=== PATIENT | female | born 1955 | race Caucasian/White ===

== ENCOUNTER 2016-07-10 15:08 | Outpatient (RCR) | payer BC ==
[2016-03-09 08:39] VITALS: BP 113/56
[~2016-07-10 15:08] MED LIST: ADVAIR IH; ALBUTEROL2.5 MG/3 M INH; BREO ELLIPTA1 POW IH; PAROXETINE40 MG PO; PREDNISONE20 M1 PO; PROAIR RESPICL90 MCG INH; ZITHROMAX 250M250 MG PO
== END 2016-08-12 10:26 | disposition home or self-care (01) ==
LOC: PT 15:08 → EDSTATUS 16:19 → PT 08-12 10:26
DX: M25.512 Pain in left shoulder (principal)

== ENCOUNTER → 2016-10-16 | Outpatient (CLI) | payer BC ==
[2016-03-09 08:39] VITALS: BP 113/56
== END ==
LOC: RAD 17:26
DX: R05 Cough (principal)

== ENCOUNTER → 2018-06-08 | Outpatient (CLI) | payer BC ==
[2016-03-09 08:39] VITALS: BP 113/56
== END ==
LOC: RAD 12:21
DX: R93.5 Abnormal findings on diagnostic imaging of other abdominal regions, including retroperitoneum (principal); K59.01 Slow transit constipation; R10.12 Left upper quadrant pain; N30.01 Acute cystitis with hematuria

== ENCOUNTER → 2018-06-15 | Outpatient (CLI) | payer BC ==
[2016-03-09 08:39] VITALS: BP 113/56
== END ==
LOC: RAD 10:44
DX: R10.9 Unspecified abdominal pain (principal)

== ENCOUNTER → 2018-07-15 | Outpatient (CLI) | payer BC ==
[2016-03-09 08:39] VITALS: BP 113/56
== END ==
LOC: RAD 16:00
DX: N20.0 Calculus of kidney (principal); R93.5 Abnormal findings on diagnostic imaging of other abdominal regions, including retroperitoneum

== ENCOUNTER → 2020-12-05 | Outpatient (CLI) | payer MEDICARE ==
[~2020-12-05] MED LIST changes: +ONDANSETRON ODT8 MG PO; +VALIUM 2MG T2 MG/TAB PO; +WELLBUTRIN SR150 M2 PO
[2020-12-05 09:50] LABS: HEMATOCRIT 48.8 % (37.0-47.0); HEMOGLOBIN 15.6 g/dL (12.5-16.0); MEAN PLATELET VOLUME 11.2 fl (7.4-10.4); RED BLOOD COUNT 5.29 M/mm3 (4.10-5.30); RED CELL DISTRIBUTION WIDTH 13.8 % (11.5-14.5); WHITE BLOOD COUNT 6.9 K/mm3 (4.8-10.8)
[2020-12-05 09:57] LABS: ALBUMIN 3.9 g/dL (3.4-4.8); POTASSIUM 4.1 mmol/L (3.5-5.1)
[2020-12-05 09:58] LABS: CALCIUM 8.6 mg/dL (8.3-10.5)
[2020-12-05 10:00] LABS: TOTAL PROTEIN 6.7 g/dL (6.2-8.1)
[2020-12-05 10:02] LABS: TOTAL BILIRUBIN 0.5 mg/dL (0.2-1.2)
== END ==
LOC: LAB 12-04 14:20
PROVIDERS: Family Medicine
DX: I10 Essential (primary) hypertension (principal); E55.9 Vitamin D deficiency, unspecified; Z72.0 Tobacco use

== ENCOUNTER → 2020-12-17 | Outpatient (CLI) | payer MEDICARE | LOC: MAMMO 14:22 | DX: Z13.820 Encounter for screening for osteoporosis (principal); Z12.31 Encounter for screening mammogram for malignant neoplasm of breast ==

== ENCOUNTER 2020-12-19 20:09 | Emergency (ER) | payer MEDICARE ==
[~2020-12-19 20:09] MED LIST changes: -ONDANSETRON ODT8 MG PO; -VALIUM 2MG T2 MG/TAB PO; -WELLBUTRIN SR150 M2 PO
[2020-12-19 22:27] LABS: BASO # 0.05 (0.02-0.10); EOS # 0.07 (0.04-0.40); EOS % 0.7 % (1.0-5.0); HEMATOCRIT 49.6 % (37.0-47.0); HEMOGLOBIN 15.8 g/dL (12.5-16.0); LYMPH# 1.31 (1.50-4.00); MEAN CELL VOLUME 93 fl (78-100); MEAN CORPUSCULAR HEMOGLOBIN 30 pg (27-31); MEAN CORPUSCULAR HGB CONC 32 g/dL (33-37); MEAN PLATELET VOLUME 11.7 fl (7.4-10.4); MONO # 0.55 (0.20-0.80); NEU # 8.57 (1.40-6.50); PLATELET COUNT 214 K/mm3 (130-400); RED BLOOD COUNT 5.36 M/mm3 (4.10-5.30); RED CELL DISTRIBUTION WIDTH 13.6 % (11.5-14.5); WHITE BLOOD COUNT 10.6 K/mm3 (4.8-10.8)
[2020-12-19 22:36] LABS: ALBUMIN 3.9 g/dL (3.4-4.8); POTASSIUM 4.3 mmol/L (3.5-5.1); SODIUM 141 mmol/L (136-145)
[2020-12-19 22:38] LABS: CALCIUM 8.9 mg/dL (8.3-10.5)
[2020-12-19 22:39] LABS: GLUCOSE 111 mg/dL (65-105); TOTAL PROTEIN 6.9 g/dL (6.2-8.1)
[2020-12-19 22:40] LABS: CARBON DIOXIDE 27 mmol/L (23-31)
[2020-12-19 22:41] LABS: TOTAL BILIRUBIN 0.4 mg/dL (0.2-1.2)
[2020-12-19 22:44] LABS: AST-SGOT 16 U/L (5-34)
[2020-12-19 22:45] LABS: ALT/SGPT 28 U/L (0-55)
[2020-12-19 22:49] LABS: URINE APPEARANCE CLOUDY; URINE COLOR YELLOW; URINE GLUCOSE NEGATIVE (NEGATIVE); URINE KETONE NEGATIVE (NEGATIVE); URINE PROTEIN(semi-quant) TRACE mg/dL (NEGATIVE)
[2020-12-19 22:50] LABS: URINE BILIRUBIN NEGATIVE (NEGATIVE); URINE BLOOD TRACE (NEGATIVE); URINE LEUKOCYTE ESTERASE NEGATIVE (NEGATIVE); URINE MUCUS PRESENT (NOT PRESENT); URINE NITRATE NEGATIVE (NEGATIVE); URINE UROBILINOGEN NORMAL (NORMAL)
[2020-12-19 22:52] LABS: TROPONIN-I < 0.03 ng/mL (<0.030)
[2020-12-19] MEDS ORDERED: WELLBUTRIN SR150 M2 PO (23:05)
[2020-12-20] MEDS ORDERED: ONDANSETRON ODT8 MG PO (01:21)
[2020-12-20] MEDS ORDERED: VALIUM 2MG T2 MG/TAB PO (01:21)
[2020-12-20 01:38] VITALS: BP 125/63
== END 2020-12-20 01:38 | disposition home or self-care (01) ==
LOC: ED 20:09
PROVIDERS: Nurse Practitioner Family
DX: J44.9 Chronic obstructive pulmonary disease, unspecified (principal); R11.2 Nausea with vomiting, unspecified; J30.2 Other seasonal allergic rhinitis; R42 Dizziness and giddiness; F41.9 Anxiety disorder, unspecified; F32.9 Major depressive disorder, single episode, unspecified; E11.9 Type 2 diabetes mellitus without complications; I10 Essential (primary) hypertension; F17.210 Nicotine dependence, cigarettes, uncomplicated; Z79.899 Other long term (current) drug therapy
CPT/HCPCS: J2405; J3360; J7030

== ENCOUNTER 2022-08-01 15:32 | Emergency (ER) | payer MEDICARE ==
[~2022-08-01] VITALS: Ht 157.5 cm; Wt 98.6 kg
[~2022-08-01 15:32] MED LIST changes: +ONDANSETRON ODT8 MG PO; +VALIUM 2MG T2 MG/TAB PO; +WELLBUTRIN SR150 M2 PO
[2022-08-01] MEDS ORDERED: AMLODIPINE BES2.5 MG PO (15:52)
[2022-08-01] MEDS ORDERED: INCRUSE EL62.5 MCG/A IH (15:52)
[2022-08-01] MEDS ORDERED: PAROXETINE HYDR40 MG PO (15:53)
[2022-08-01 16:47] LABS: HEMATOCRIT 42.6 % (37.0-47.0); HEMOGLOBIN 13.7 g/dL (12.5-16.0); MEAN CELL VOLUME 92 fl (78-100); MEAN CORPUSCULAR HEMOGLOBIN 30 pg (27-31); MEAN CORPUSCULAR HGB CONC 32 g/dL (33-37); MEAN PLATELET VOLUME 11.8 fl (7.4-10.4); PLATELET COUNT 139 K/mm3 (130-400); RED BLOOD COUNT 4.62 M/mm3 (4.10-5.30); RED CELL DISTRIBUTION WIDTH 13.5 % (11.5-14.5); WHITE BLOOD COUNT 4.8 K/mm3 (4.8-10.8)
[2022-08-01 17:00] LABS: POTASSIUM 3.9 mmol/L (3.5-5.1)
[2022-08-01 17:01] LABS: CALCIUM 8.7 mg/dL (8.3-10.5)
[2022-08-01 17:02] LABS: TOTAL PROTEIN 6.3 g/dL (6.2-8.1)
[2022-08-01 17:04] LABS: TOTAL BILIRUBIN 0.6 mg/dL (0.2-1.2)
[2022-08-01 17:06] LABS: BAND 3 % (0-10); LYMPHOCYTE 7 % (20-51); MONOCYTE 8 % (3-10); NEUTROPHILS 82 % (42-75)
[2022-08-01 17:22] LABS: URINE APPEARANCE HAZY; URINE BILIRUBIN NEGATIVE (NEGATIVE); URINE BLOOD 250 ery/uL (NEGATIVE); URINE COLOR YELLOW; URINE GLUCOSE NEGATIVE (NEGATIVE); URINE KETONE 2+ (NEGATIVE); URINE LEUKOCYTE ESTERASE NEGATIVE (NEGATIVE); URINE NITRATE NEGATIVE (NEGATIVE); URINE PROTEIN(semi-quant) TRACE (NEGATIVE); URINE UROBILINOGEN NORMAL (NORMAL)
[2022-08-01] MEDS ORDERED: LORAZEPAM1 M1 PO (19:40)
[2022-08-01] MEDS ORDERED: FAMOTIDINE20 MG PO (19:40)
[2022-08-01 20:02] VITALS: BP 92/76
== END 2022-08-01 20:34 | disposition home or self-care (01) ==
LOC: ED 15:32
PROVIDERS: Family Medicine
DX: R63.0 Anorexia (principal); F41.9 Anxiety disorder, unspecified; J44.9 Chronic obstructive pulmonary disease, unspecified; Z99.81 Dependence on supplemental oxygen; Z87.891 Personal history of nicotine dependence
CPT/HCPCS: J2060; J3490; J7042

== ENCOUNTER → 2022-08-14 | Outpatient (CLI) | payer MEDICARE ==
[~2022-08-14] MED LIST changes: +AMLODIPINE BES2.5 MG PO; +FAMOTIDINE20 MG PO; +INCRUSE EL62.5 MCG/A IH; +LORAZEPAM1 M1 PO; +PAROXETINE HYDR40 MG PO
[2022-08-14 11:48] LABS: BASO # 0.02 K/mm3 (0.02-0.10); EOS # 0.04 K/mm3 (0.04-0.40); EOS % 0.5 % (1.0-5.0); HEMATOCRIT 42.7 % (37.0-47.0); HEMOGLOBIN 13.3 g/dL (12.5-16.0); LYMPH# 1.13 K/mm3 (1.50-4.00); MEAN CELL VOLUME 93 fl (78-100); MEAN CORPUSCULAR HEMOGLOBIN 29 pg (27-31); MEAN CORPUSCULAR HGB CONC 31 g/dL (33-37); MEAN PLATELET VOLUME 11.5 fl (7.4-10.4); MONO # 0.56 K/mm3 (0.20-0.80); NEU # 5.99 K/mm3 (1.40-6.50); PLATELET COUNT 254 K/mm3 (130-400); RED BLOOD COUNT 4.57 M/mm3 (4.10-5.30); RED CELL DISTRIBUTION WIDTH 13.4 % (11.5-14.5); WHITE BLOOD COUNT 7.8 K/mm3 (4.8-10.8)
[2022-08-14 11:57] LABS: POTASSIUM 4.2 mmol/L (3.5-5.1)
[2022-08-14 11:58] LABS: ALBUMIN 3.9 g/dL (3.4-4.8)
[2022-08-14 11:59] LABS: CALCIUM 9.2 mg/dL (8.3-10.5)
[2022-08-14 12:00] LABS: TOTAL PROTEIN 6.6 g/dL (6.2-8.1)
[2022-08-14 12:02] LABS: TOTAL BILIRUBIN 0.5 mg/dL (0.2-1.2)
[2022-08-14 23:21] LABS: HEPATITIS C VIRUS ANTIBODY Negative (Negative)
== END ==
LOC: LAB 11:23
PROVIDERS: Family Medicine
DX: Z23 Encounter for immunization (principal); Z00.01 Encounter for general adult medical examination with abnormal findings; Z13.220 Encounter for screening for lipoid disorders; Z13.1 Encounter for screening for diabetes mellitus; F41.9 Anxiety disorder, unspecified; I10 Essential (primary) hypertension; E55.9 Vitamin D deficiency, unspecified; J44.9 Chronic obstructive pulmonary disease, unspecified; G47.33 Obstructive sleep apnea (adult) (pediatric); Z84.89 Family history of other specified conditions

== ENCOUNTER → 2023-03-04 | Outpatient (CLI) | payer MEDICARE ==
[2023-03-04 12:28] LABS: CALCIUM 9.2 mg/dL (8.3-10.5)
[2023-03-04 12:29] LABS: TOTAL PROTEIN 6.8 g/dL (6.2-8.1)
[2023-03-04 12:31] LABS: TOTAL BILIRUBIN 0.4 mg/dL (0.2-1.2)
== END ==
LOC: LAB 12:05
PROVIDERS: Family Medicine
DX: I10 Essential (primary) hypertension (principal); E55.9 Vitamin D deficiency, unspecified; E78.5 Hyperlipidemia, unspecified

== ENCOUNTER → 2023-05-21 | Outpatient (CLI) | payer MEDICARE ==
[2023-05-21 21:38] LABS: HEPATITIS C VIRUS ANTIBODY Negative (Negative)
== END ==
LOC: LAB 12:08
PROVIDERS: Family Medicine
DX: Z12.2 Encounter for screening for malignant neoplasm of respiratory organs (principal); Z11.4 Encounter for screening for human immunodeficiency virus [HIV]; Z11.59 Encounter for screening for other viral diseases; J44.9 Chronic obstructive pulmonary disease, unspecified; F33.1 Major depressive disorder, recurrent, moderate; F41.1 Generalized anxiety disorder; I10 Essential (primary) hypertension; E78.5 Hyperlipidemia, unspecified; E55.9 Vitamin D deficiency, unspecified; R73.9 Hyperglycemia, unspecified

== ENCOUNTER → 2023-09-29 | Outpatient (CLI) | payer MEDICARE ==
[2023-09-29 17:05] LABS: CALCIUM 9.6 mg/dL (8.3-10.5)
== END ==
LOC: LAB 16:40
PROVIDERS: Family Medicine
DX: E78.5 Hyperlipidemia, unspecified (principal); I10 Essential (primary) hypertension; L30.8 Other specified dermatitis